=== PATIENT | female | born 1975 | race Caucasian/White ===

== ENCOUNTER → 2019-03-25 | Outpatient (CLI) | payer OTHER | LOC: M.RAD 09:23 | DX: Z12.31 Encounter for screening mammogram for malignant neoplasm of breast (principal) ==

== ENCOUNTER → 2020-03-08 | Outpatient (CLI) | payer OTHER | LOC: M.LAB 16:14 | PROVIDERS: ATTEND Internal Medicine Gastroenterology | DX: Z01.812 Encounter for preprocedural laboratory examination (principal); Z11.59 Encounter for screening for other viral diseases; Z12.11 Encounter for screening for malignant neoplasm of colon ==

== ENCOUNTER → 2020-04-04 | Outpatient (CLI) | payer OTHER | LOC: M.RAD 13:10 | PROVIDERS: ATTEND Specialist | DX: Z12.31 Encounter for screening mammogram for malignant neoplasm of breast (principal) ==

== ENCOUNTER → 2020-04-11 | Outpatient (CLI) | payer OTHER | LOC: M.ULTRA 09:30 | PROVIDERS: ATTEND Specialist | DX: Z01.419 Encounter for gynecological examination (general) (routine) without abnormal findings (principal); N60.02 Solitary cyst of left breast; N64.59 Other signs and symptoms in breast ==

== ENCOUNTER → 2021-05-10 | Outpatient (CLI) | payer OTHER | LOC: M.RAD 10:25 | PROVIDERS: ATTEND Specialist | DX: Z12.31 Encounter for screening mammogram for malignant neoplasm of breast (principal) ==